=== PATIENT | male | born 1940 | race Caucasian/White ===

== ENCOUNTER 2016-07-08 11:15 | Inpatient (IN) | payer MEDICARE, BC ==
[~2016-07-08 11:15] MED LIST: ALPRAZOLAM0.5 MG; AMBIEN CR12.5 MG/BO; AMBIEN10 MG; ASPIRIN81 M1 PO; ASPIRIN81 MG; BENICAR40 MG; CALCIUM500 MG; CLARITIN10 M6 PO; DURAGESIC1 EAC4 TOP; DURAGESIC1 PATCH; ENALAPRIL-HCTZ1 EACH PO; ENALAPRIL-HCTZ1 TAB; FISH OIL 1,0001 CA; GABAPENTIN600 M2 PO; GABAPENTIN600 MG; LIBRAX; LIBRAX CAPSULE1 EACH PO; METOPROLOL TAR100 MG; MIRALAX17 G2 PO; MOBIC15 M2 PO; MULTIVITAMIN1 CAP; NAPROXEN500 MG; NEURONTIN300 MG; NEURONTIN600 M1 PO; OXYCODONE/APAP; OXYCONTIN10 M2 PO; TOPROL XL100 M1 PO; TOPROL XL100 MG; VASERETIC 10-251 TAB; VISION VITAMIN1 EAC2 PO; VITAMIN D35000 UNI3 PO; ZOCOR20 M1 PO; ZOCOR40 MG; ZOCOR80 MG; [UNRECOGNIZED DRUG - REMARK]
[2016-07-09 06:32] LABS: ANION GAP 10 mmol/L (0-20); BLOOD UREA NITROGEN 17 mg/dl (6-24); CALCIUM 8.9 mg/dl (8.5-10.5); CARBON DIOXIDE-VENOUS 31 mmol/L (22-32); CHLORIDE 100 mmol/l (96-110); CREATININE 0.96 mg/dl (0.60-1.30); GLUCOSE 107 mg/dL (70-110); POTASSIUM 3.6 mmol/L (3.7-5.1); SODIUM 137 mmol/L (135-145); eGFR VALUE FOR BLACK 90 mL/Min
[2016-07-11] MEDS ORDERED: CYCLOBENZAPRINE10 M1 PO (15:37)
[2016-07-11] MEDS ORDERED: TYLENOL325 M2 PO (15:40)
[2016-07-11] MEDS ORDERED: SENNA-S TABLET1 EAC3 PO (15:42)
[2016-07-11] MEDS ORDERED: PERCOCET 5-3251 EACH PO (15:42)
== END 2016-07-11 16:39 | DRG 520 ==
LOC: SHSB 11:15 → ORE 12:20 → PACU 14:20 → 5EC 14:52 → PACU 15:18 → 5EC 16:40
PROVIDERS: ADMIT Neurological Surgery
PROC: 00NY0ZZ Release Lumbar Spinal Cord, Open Approach (ICD-10-PCS; principal; 2016-07-08)
DX: M48.06 Spinal stenosis, lumbar region (principal); G62.9 Polyneuropathy, unspecified; M54.16 Radiculopathy, lumbar region; E78.5 Hyperlipidemia, unspecified; G47.33 Obstructive sleep apnea (adult) (pediatric); I10 Essential (primary) hypertension; I25.10 Atherosclerotic heart disease of native coronary artery without angina pectoris; G89.29 Other chronic pain; Z88.0 Allergy status to penicillin; Z95.1 Presence of aortocoronary bypass graft; Z96.651 Presence of right artificial knee joint; Z79.82 Long term (current) use of aspirin; Z79.891 Long term (current) use of opiate analgesic; Z79.899 Other long term (current) drug therapy
CPT/HCPCS: J0690; J1170; J3010